=== PATIENT | female | born 1955 | race Caucasian/White ===

== ENCOUNTER 2017-06-08 16:16 | Emergency (ER) | payer MEDICAID ==
[~2017-06-08] VITALS: Ht 157.5 cm; Wt 55.0 kg
[2017-06-08] MEDS ORDERED: BACL-141 PO (16:22)
[2017-06-08] MEDS ORDERED: TETRACAINE 0.5% OPHTH DROPS 4ML OP ONE (22:45)
[2017-06-08] MEDS ORDERED: FLUORESCEIN SODIUM 1MG/STRIP OP ONE (22:45)
[2017-06-08 23:00] VITALS: BP 128/68
[2017-06-09] MEDS ORDERED: TETANUS, DIPHTHERIA, PERTUSSIS VAC/PF 0.5ML (>7YR OLD) IM ONE
== END 2017-06-09 00:20 | disposition home or self-care (01) ==
LOC: ER 17:04
DX: S05.01XA Injury of conjunctiva and corneal abrasion without foreign body, right eye, initial encounter (principal); W22.8XXA Striking against or struck by other objects, initial encounter; Y93.89 Activity, other specified; Y92.89 Other specified places as the place of occurrence of the external cause
CPT/HCPCS: 90471; 90715; 99283